=== PATIENT | female | born 1995 | race Caucasian/White ===

== ENCOUNTER 2017-05-09 10:51 | Emergency (ER) | payer OTHER ==
[~2017-05-09] VITALS: Ht 154.9 cm; Wt 78.0 kg
[~2017-05-09 10:51] MED LIST: LO LOESTRIN FE1 EACH PO
[2017-05-09] MEDS ORDERED: VIGAMOX 0.60 DROP/3 LEFT EYE (11:47)
[2017-05-09 12:00] VITALS: BP 118/81
== END 2017-05-09 12:02 | disposition home or self-care (01) ==
LOC: EME 10:51
DX: S05.02XA Injury of conjunctiva and corneal abrasion without foreign body, left eye, initial encounter (principal); X58.XXXA Exposure to other specified factors, initial encounter
CPT/HCPCS: 99281; 99283

== ENCOUNTER 2017-06-27 06:44 | Emergency (ER) | payer OTHER ==
[~2017-06-27] VITALS: Ht 154.9 cm; Wt 79.1 kg
[~2017-06-27 06:44] MED LIST changes: +VIGAMOX 0.60 DROP/3 LEFT EYE
[2017-06-27] MEDS ORDERED: OCUFLOX 0.100 DROP/5 BOTH EYES (08:15)
[2017-06-27] MEDS ORDERED: PERCOCET 5/31 TABLET PO (08:15)
[2017-06-27] MEDS ORDERED: NAPROSYN500 MG PO (08:19)
[2017-06-27 08:40] VITALS: BP 128/76
== END 2017-06-27 08:50 | disposition home or self-care (01) ==
LOC: EME 06:44
DX: H10.9 Unspecified conjunctivitis (principal)
CPT/HCPCS: 99281; 99284